=== PATIENT | male | born 1950 | race Caucasian/White ===

== ENCOUNTER 2018-08-29 22:23 | Outpatient (CLI) | payer MEDICARE, MEDICAID | END 2018-08-29 22:24 | disposition critical access hospital (66) | LOC: EMS 22:23 | PROVIDERS: ATTEND Surgery | DX: R44.3 Hallucinations, unspecified (principal); R46.89 Other symptoms and signs involving appearance and behavior; R56.9 Unspecified convulsions | CPT/HCPCS: A0425; A0427 ==

== ENCOUNTER 2018-08-29 22:52 | Emergency (ER) | payer MEDICARE, MEDICAID ==
[2018-08-29] MEDS ORDERED: ETOMIDATE 40 MG/20 ML VIAL IVP STA (23:05)
[2018-08-29] MEDS ORDERED: ROCURONIUM 50 MG/5 ML VIAL IVP ONE (23:13)
[2018-08-29] MEDS ORDERED: SODIUM CHLORIDE 0.9% 1,000 ML IV ONE ×2 (23:14→23:59)
[2018-08-29 23:15] LABS: BASOPHILS # (AUTO) 0.1 10^3/uL (0.0-0.1); BASOPHILS % (AUTO) 0.4 %; EOSINOPHILS % (AUTO) 0.1 %; HGB - HEMOGLOBIN 12.2 g/dL (14.0-18.0); LYMPHOCYTES # (AUTO) 1.2 10^3/uL (1.5-3.5); LYMPHOCYTES % (AUTO) 8.7 %; MEAN CORPUSCULAR HEMOGLOBIN 33.6 pg (27.0-31.0); MEAN CORPUSCULAR VOLUME 101.9 fL (80.0-94.0); MEAN PLATELET VOLUME 9.5 fL (7.4-11.4); MONOCYTES # (AUTO) 0.8 10^3/uL (0.0-1.0); MONOCYTES % (AUTO) 5.8 %; NEUTROPHILS # (AUTO) 11.8 10^3/uL (1.5-6.6); NEUTROPHILS % (AUTO) 84.1 %; PLT - PLATELET COUNT 319 10^3/uL (130-450); RED BLOOD COUNT 3.63 10^6/uL (4.70-6.10); RED CELL DISTRIBUTION WIDTH 11.9 % (12.0-15.0)
[2018-08-29] MEDS ORDERED: ETOMIDATE 40 MG/20 ML VIAL IVP ONE (23:15)
[2018-08-29] MEDS ORDERED: LORazepam 2 MG/ML VIAL IVP STA (23:16)
[2018-08-29] MEDS ORDERED: PROPOFOL 1000 MG/100 ML 100 ML IV STA (23:16)
[2018-08-29 23:23] LABS: GLUCOSE, URINE (UA) NEGATIVE (NEGATIVE); KETONES,URINE (UA) NEGATIVE (NEGATIVE); LEUKOCYTE ESTERASE, URINE NEGATIVE (NEGATIVE); NITRITE,URINE NEGATIVE (NEGATIVE); OCCULT BLOOD,URINE LARGE (NEGATIVE); PH,URINE 5.5 PH (5.0-7.5); PROTEIN,URINE 30 mg/dL (NEGATIVE); UROBILINOGEN,URINE 0.2 (NORMAL) E.U./dL (NORMAL)
--- NOTE | 2018-08-29 23:29 | XRAY Report ---
Reason: chest pain Procedure Date: 08/29/2018 Accession Number: [id number] / [id number] Procedure: XR - Chest 1 View X-Ray CPT Code: 92053 FULL RESULT: EXAM: CHEST RADIOGRAPHY EXAM DATE: 08/29/2018 11:19 PM. CLINICAL HISTORY: Chest pain. COMPARISON: None. TECHNIQUE: 1 view. FINDINGS: Lungs/Pleura: No focal opacities evident. No pleural effusion. No pneumothorax. Mediastinum: Within exam limitations, the cardiomediastinal contour is normal. Other: Endotracheal tube tip is in the upper thoracic aorta just below the thoracic inlet. IMPRESSION: Normal single view chest. RADIA
[2018-08-29 23:30] LABS: BILIRUBIN,URINE NEGATIVE (NEGATIVE); CLARITY,URINE CLEAR (CLEAR); ICTOTEST,URINE NEGATIVE
[2018-08-29] MEDS ORDERED: ROCURONIUM 50 MG/5 ML VIAL IVP STA (23:30)
[2018-08-29 23:31] LABS: BACTERIA,URINE Rare /HPF (None Seen); SQUAMOUS EPITHELIAL CELL,UR FEW Squamous (<= Few)
[2018-08-29 23:49] LABS: ALBUMIN 3.9 g/dL (3.2-5.5); ALBUMIN/GLOBULIN RATIO 0.9 (1.0-2.2); CALCIUM 8.1 mg/dL (8.5-10.3); CREATININE 2.4 mg/dL (0.6-1.2); TOTAL PROTEIN 8.2 g/dL (6.7-8.2)
[2018-08-30 00:09] LABS: ACETAMINOPHEN < 10 ug/mL (10-30); SALICYLATE < 6.0 mg/dL
[2018-08-30 00:19] LABS: AMPHETAMINE SCREEN,URINE NEGATIVE (NEGATIVE); BENZODIAZEPINES SCREEN, URINE NEGATIVE (NEGATIVE); COCAINE SCREEN URINE NEGATIVE (NEGATIVE); METHADONE SCREEN, URINE NEGATIVE (NEGATIVE); METHAMPHETAMINES SCREEN, URINE NEGATIVE (NEGATIVE); MUDS CUTOFF CONCENTRATIONS CUTOFF CONC BELOW:; OPIATE SCREEN, URINE NEGATIVE (NEGATIVE); OXYCODONE SCREEN, URINE NEGATIVE (NEGATIVE); PROPOXYPHENE SCREEN, URINE NEGATIVE (NEGATIVE); TRICYCLIC ANTIDEPRESSANT,URINE NEGATIVE (NEGATIVE)
--- NOTE | 2018-08-30 00:23 | CT Report ---
Reason: altered LOC Procedure Date: 08/29/2018 Accession Number: [id number] / [id number] Procedure: CT - HEAD WO CPT Code: FULL RESULT: EXAM: CT HEAD EXAM DATE: 08/29/2018 11:42 PM. CLINICAL HISTORY: Altered LOC. COMPARISON: None. TECHNIQUE: Multiaxial CT images were obtained from the foramen magnum to the vertex. Reformats: Sagittal and coronal. IV contrast: None. In accordance with CT protocol optimization, one or more of the following dose reduction techniques were utilized for this exam: automated exposure control, adjustment of mA and/or KV based on patient size, or use of iterative reconstructive technique. FINDINGS: Parenchyma: No intraparenchymal hemorrhage. No evidence of mass, midline shift, or CT findings of acute infarction. Martinez-white differentiation is distinct. Diffuse chronic microangiopathic white matter changes are evident. Extraaxial Spaces: Normal for age. No subdural or epidural collections identified. Ventricles: The ventricles and cortical sulci are enlarged, consistent with age-related tissue loss. Sinuses and orbits: Imaged paranasal sinuses, orbits, and mastoids show no significant abnormality. Bones: No evidence of fracture or calvarial defect. Other: None. IMPRESSION: Generalized age-related cortical atrophic changes without evidence of acute intracranial abnormality. RADIA
[2018-08-30 00:45] LABS: ABG BASE EXCESS -1.4 mmol/L (-2.0-3.0); ABG OXYGEN SATURATION 99 % (94-98); ABG PCO2 33 mmHg (34-45); ABG PH 7.44 (7.35-7.45); ABG TCO2 23.1 MMOL/L (21.0-29.0); ALLEN TEST POSITIVE
[2018-08-30 00:46] LABS: ABG PO2 264 mmHg (80-100)
--- NOTE | 2018-08-30 00:50 | XRAY Report ---
Reason: chest pain Procedure Date: 08/29/2018 Accession Number: [id number] / [id number] Procedure: XR - Chest 1 View X-Ray CPT Code: 41053 FULL RESULT: EXAM: CHEST RADIOGRAPHY EXAM DATE: 08/29/2018 11:56 PM. CLINICAL HISTORY: Chest pain. COMPARISON: CHEST 1 VIEW 08/29/2018 11:06 PM. TECHNIQUE: 1 view. FINDINGS: Lungs/Pleura: There is a new small focal infiltrate or a zone of atelectasis at the left lung base. The lungs are otherwise clear. There are no pleural effusions. There may be a right apical pneumothorax. It is difficult to define whether there is a skin fold versus a pneumothorax. Clinical correlation will be helpful with respect to a potential skin fold. Mediastinum: Within exam limitations, the cardiomediastinal contour is normal. Other: None. IMPRESSION: 1. New zone of atelectasis at the left lung base. 2. Right apical pneumothorax versus subtle skin fold. Clinical correlation will be helpful. MARLO The call report notification system was initiated by Dr. Amol Jones at 12:44 AM on 08/30/2018. The above call report findings were discussed with Kenneth Bhatti by Dr. Aoml Jones at 12:49 AM on 08/30/2018.
--- NOTE | 2018-08-30 01:26 | CT Report ---
Reason: ? R apical pneumo Procedure Date: 08/30/2018 Accession Number: [id number] / [id number] Procedure: CT - CHEST WO CPT Code: FULL RESULT: EXAM: CT CHEST EXAM DATE: 08/30/2018 01:15 AM. CLINICAL HISTORY: ? R apical pneumo. COMPARISONS: None. TECHNIQUE: Routine helical CT imaging was performed through the chest. IV contrast: None. Reconstructions: Coronal and sagittal. In accordance with CT protocol optimization, one or more of the following dose reduction techniques were utilized for this exam: automated exposure control, adjustment of mA and/or KV based on patient size, or use of iterative reconstructive technique. FINDINGS: Lungs/Pleura: There is an area of atelectasis versus aspiration at the left lung base. The patient is intubated. The tip is in the mid trachea. There are no pleural effusions and no pneumothoraces. Mediastinum: The heart is not enlarged. There are extensive atherosclerotic vascular calcifications of the coronary arteries. Bones: Unremarkable. Visualized Abdomen: Limited views of the upper abdomen are unremarkable. Other: None. IMPRESSION: 1. Infiltrate/aspiration left lower lobe. 2. Status post intubation. 3. No evidence for pneumothorax. RADIA
--- NOTE | 2018-08-30 01:40 | ED Physician Documentation ---
PD HPI ALTERED MENTAL STATUS - Stated complaint Stated Complaint: HALLUCINATIONS - Chief complaint Chief Complaint: Neuro - History obtained from History obtained from: Family ( Bertha by phone), EMS - History of Present Illness Timing - onset: How many days ago (3) Timing - duration: Days (3) Timing - details: Gradual onset, Still present Quality / character: Confused, Agitated, Combative, Hallucinating Associated symptoms: General weakness. No: Fever, Headache, Stiff neck, Dyspnea, Cough, NVD, Urinary sx, Focal weakness, Seizure activity, Syncope Contributing factors: Recent illness, Other (stopped drinking 3 days ago). No: Anticoagulated Basline status: Alert and oriented X 3, Ambulatory, Independent Similar symptoms before: Has not had sx before Recently seen: Not recently seen - Additional information Additional information: 68-year-old male unknown to this emergency department and with no family here for history presents via EMS with a several day history of increasing shakes and tonight development of ward hallucination and combativeness. History from the patient's (Bertha [phone]) indicates that he usually drinks whiskey about 1 pint per day and he has stopped drinking about 3 days ago. She states that he has been cranky with her and short tempered and has developed some shaking. This evening he became in comprehensible and she called the ambulance. Medics indicate that the patient was combative and they administered 4 mg of Versed in route to the hospital. He was found to be hypoxic tachycardic and tachypneic.He arrives to the emergency department with a Jc Coma Scale of 6. Review of Systems Unable to obtain: Intubated Constitutional: denies: Fever PD PAST MEDICAL HISTORY - Past Medical History Past Medical History: Yes Cardiovascular: Hypertension Respiratory: None Endocrine/Autoimmune: None GI: GERD : None HEENT: None Psych: None Musculoskeletal: None Derm: None - Past Surgical History General: Appendectomy - Present Medications Home Medications: Ambulatory Orders Medication Instructions Recorded Confirmed Hydrochlorothiazide 12.5 mg PO DAILY 12/13/15 12/13/15 Losartan Potassium 50 mg PO DAILY 12/13/15 12/13/15 Omeprazole [PriLOSEC] 20 mg PO DAILY 12/13/15 12/13/15 diltiaZEM CD [Cardizem Cd] 240 mg PO DAILY 12/13/15 12/13/15 Cyclobenzaprine [Flexeril] 10 mg PO TID 08/30/18 08/30/18 - Allergies Allergies/Adverse Reactions: Allergies Allergy/AdvReac Type Severity Reaction Status Date / Time No Known Drug Allergies Allergy Verified 12/13/15 15:00 - Social History Does the pt smoke?: No Smoking Status: Never smoker PD ED PE NORMAL - Vitals Vital signs reviewed: Yes (tachy, tachypneic, hypertensive and hypoxic) - General General: Well developed/nourished, Other (clean appearing with clean hands and trimmed nails) - HEENT HEENT: Atraumatic, PERRL - Neck Neck: Supple, no meningeal sign, No JVD, No bruit - Cardiac Cardiac: No murmur, Other (tachy to 120) - Respiratory Respiratory: Other (with bagging there is bilat rhonchi) - Abdomen Abdomen: Soft, Non tender - Back Back: No CVA TTP - Derm Derm: Normal color, Warm and dry, No rash - Extremities Extremities: No deformity, No edema - Neuro Neuro: Other (GCS 6 does move all ext to fight periodically) Eye Opening: None Motor: Withdraws to Pain Verbal: None GCS Score: 6 Results - Vitals Vitals: Vital Signs - 24 hr 08/29/18 08/29/18 08/29/18 22:53 23:01 23:12 Temperature 37.1 C Heart Rate 122 H 131 H 130 H Respiratory 36 H 9 L Rate Blood Pressure 138/77 H 138/77 H 140/93 H O2 Saturation 77 L 85 L 96 08/29/18 08/29/18 08/30/18 23:25 23:45 00:00 Temperature Heart Rate 117 H 94 89 Respiratory 11 L 18 Rate Blood Pressure 140/93 H 124/92 H O2 Saturation 100 100 08/30/18 08/30/18 08/30/18 00:04 00:30 01:18 Temperature Heart Rate 92 91 93 Respiratory 16 18 21 Rate Blood Pressure 120/83 H 140/116 H 139/91 H O2 Saturation 100 100 100 08/30/18 08/30/18 08/30/18 01:28 01:33 02:00 Temperature 36.7 C Heart Rate 80 81 77 Respiratory 16 16 14 Rate Blood Pressure 131/92 H 135/90 H 122/86 H O2 Saturation 96 100 98 06/08/30/18 08/30/18 02:30 02:55 03:00 Temperature Heart Rate 74 75 73 Respiratory 16 16 Rate Blood Pressure 141/88 H 132/83 H O2 Saturation 100 100 08/30/18 08/30/18 08/30/18 03:02 03:33 04:06 Temperature 37 C Heart Rate 74 76 76 Respiratory 16 16 21 Rate Blood Pressure 132/83 H 121/82 H 120/81 H O2 Saturation 100 100 100 Oxygen O2 Source Mechanical ventilator - EKG (time done) 2352 Rate: Rate (enter#) (96) Rhythm: NSR Intervals: Prolonged QT QRS: Low voltage Ischemia: ST depression (inferior leads) Compare to prior EKG: Old EKG unavailable Computer interpretation: Agree with computer - Labs Labs: Laboratory Tests 08/29/18 08/29/18 08/29/18 23:10 23:10 23:10 WBC 14.0 H RBC 3.63 L Hgb 12.2 L Hct 37.0 L MCV 101.9 H MCH 33.6 H MCHC 33.0 RDW 11.9 L Plt Count 319 MPV 9.5 Neut # (Auto) 11.8 H Lymph # (Auto) 1.2 L [place] # (Auto) 0.8 Eos # (Auto) 0.0 Baso # (Auto) 0.1 Absolute Nucleated RBC 0.00 Nucleated RBC % 0.0 Bld Gas Analysis Time Sample Site ABG pH ABG pCO2 ABG pO2 ABG HCO3 ABG Total CO2 ABG O2 Saturation ABG Base Excess Woody Test Respiration Rate O2 Delivery Device Vent Mode FiO2 Tidal Volume PEEP Pressure Support Vent Sodium 138 Potassium 2.5 L* Chloride 96 L Carbon Dioxide 10 L* Anion Gap 32.0 H BUN 38 H Creatinine 2.4 H Estimated GFR (MDRD) 27 L Glucose 210 H Lactic Acid Calcium 8.1 L Total Bilirubin 1.0 AST 52 H ALT 30 Alkaline Phosphatase 40 L Troponin I < 0.04 B-Natriuretic Peptide Total Protein 8.2 Albumin 3.9 Globulin 4.3 H Albumin/Globulin Ratio 0.9 L Lipase 346 H TSH Urine Color Urine Clarity Urine pH Ur Specific [place] Urine Protein Urine Glucose (UA) Urine Ketones Urine Occult Blood Urine Nitrite Urine Bilirubin Urine Urobilinogen Ur Leukocyte Esterase Urine RBC Urine WBC Ur Squamous Epith Cells Urine Bacteria Urine Casts Ur Microscopic Review Urine Culture Comments Salicylates Urine Opiates Screen Ur Oxycodone Screen Urine Methadone Screen Ur Propoxyphene Screen Acetaminophen Ur Barbiturates Screen Ur Tricyclics Screen Ur Phencyclidine Scrn Ur Amphetamine Screen U Methamphetamines Scrn U Benzodiazepines Scrn Urine Cocaine Screen U Cannabinoids Screen Ethyl Alcohol 08/29/18 08/29/18 08/29/18 23:10 23:10 23:10 WBC RBC Hgb Hct MCV MCH MCHC RDW Plt Count MPV Neut # (Auto) Lymph # (Auto) [place] # (Auto) Eos # (Auto) Baso # (Auto) Absolute Nucleated RBC Nucleated RBC % Bld Gas Analysis Time Sample Site ABG pH ABG pCO2 ABG pO2 ABG HCO3 ABG Total CO2 ABG O2 Saturation ABG Base Excess Woody Test Respiration Rate O2 Delivery Device Vent Mode FiO2 Tidal Volume PEEP Pressure Support Vent Sodium Potassium Chloride Carbon Dioxide Anion Gap BUN Creatinine Estimated GFR (MDRD) Glucose Lactic Acid Calcium Total Bilirubin AST ALT Alkaline Phosphatase Troponin I B-Natriuretic Peptide 100 Total Protein Albumin Globulin Albumin/Globulin Ratio Lipase TSH 1.04 Urine Color Urine Clarity Urine pH Ur Specific [place] Urine Protein Urine Glucose (UA) Urine Ketones Urine Occult Blood Urine Nitrite Urine Bilirubin Urine Urobilinogen Ur Leukocyte Esterase Urine RBC Urine WBC Ur Squamous Epith Cells Urine Bacteria Urine Casts Ur Microscopic Review Urine Culture Comments Salicylates < 6.0 Urine Opiates Screen Ur Oxycodone Screen Urine Methadone Screen Ur Propoxyphene Screen Acetaminophen < 10 L Ur Barbiturates Screen Ur Tricyclics Screen Ur Phencyclidine Scrn Ur Amphetamine Screen U Methamphetamines Scrn U Benzodiazepines Scrn Urine Cocaine Screen U Cannabinoids Screen Ethyl Alcohol < 5.0 08/29/18 08/29/18 08/29/18 23:18 23:21 23:26 WBC RBC Hgb Hct MCV MCH MCHC RDW Plt Count MPV Neut # (Auto) Lymph # (Auto) [place] # (Auto) Eos # (Auto) Baso # (Auto) Absolute Nucleated RBC Nucleated RBC % Bld Gas Analysis Time Sample Site ABG pH ABG pCO2 ABG pO2 ABG HCO3 ABG Total CO2 ABG O2 Saturation ABG Base Excess Woody Test Respiration Rate O2 Delivery Device Vent Mode FiO2 Tidal Volume PEEP Pressure Support Vent Sodium Potassium Chloride Carbon Dioxide Anion Gap BUN Creatinine Estimated GFR (MDRD) Glucose Lactic Acid > 10.0 H* Calcium Total Bilirubin AST ALT Alkaline Phosphatase Troponin I B-Natriuretic Peptide Total Protein Albumin Globulin Albumin/Globulin Ratio Lipase TSH Urine Color YELLOW Urine Clarity CLEAR Urine pH 5.5 Ur Specific [place] 1.025 Urine Protein 30 H Urine Glucose (UA) NEGATIVE Urine Ketones NEGATIVE Urine Occult Blood LARGE H Urine Nitrite NEGATIVE Urine Bilirubin NEGATIVE Urine Urobilinogen 0.2 (NORMAL) Ur Leukocyte Esterase NEGATIVE Urine RBC 11-25 H Urine WBC 0-3 Ur Squamous Epith Cells FEW Squamous Urine Bacteria Rare Urine Casts 0-2 Fine Granular Ur Microscopic Review INDICATED Urine Culture Comments NOT INDICATED Salicylates Urine Opiates Screen NEGATIVE Ur Oxycodone Screen NEGATIVE Urine Methadone Screen NEGATIVE Ur Propoxyphene Screen NEGATIVE Acetaminophen Ur Barbiturates Screen NEGATIVE Ur Tricyclics Screen NEGATIVE Ur Phencyclidine Scrn NEGATIVE Ur Amphetamine Screen NEGATIVE U Methamphetamines Scrn NEGATIVE U Benzodiazepines Scrn NEGATIVE Urine Cocaine Screen NEGATIVE U Cannabinoids Screen POSITIVE H Ethyl Alcohol 08/30/18 00:38 WBC RBC Hgb Hct MCV MCH MCHC RDW Plt Count MPV Neut # (Auto) Lymph # (Auto) [place] # (Auto) Eos # (Auto) Baso # (Auto) Absolute Nucleated RBC Nucleated RBC % Bld Gas Analysis Time 0046 Sample Site RIGHT RADIAL ABG pH 7.44 ABG pCO2 33 L ABG pO2 264 H* ABG HCO3 22.0 ABG Total CO2 23.1 ABG O2 Saturation 99 H ABG Base Excess -1.4 Woody Test POSITIVE Respiration Rate 18 O2 Delivery Device VENTILATOR Vent Mode SIMV FiO2 100.00 Tidal Volume 550 PEEP 5 Pressure Support Vent 10 Sodium Potassium Chloride Carbon Dioxide Anion Gap BUN Creatinine Estimated GFR (MDRD) Glucose Lactic Acid Calcium Total Bilirubin AST ALT Alkaline Phosphatase Troponin I B-Natriuretic Peptide Total Protein Albumin Globulin Albumin/Globulin Ratio Lipase TSH Urine Color Urine Clarity Urine pH Ur Specific [place] Urine Protein Urine Glucose (UA) Urine Ketones Urine Occult Blood Urine Nitrite Urine Bilirubin Urine Urobilinogen Ur Leukocyte Esterase Urine RBC Urine WBC Ur Squamous Epith Cells Urine Bacteria Urine Casts Ur Microscopic Review Urine Culture Comments Salicylates Urine Opiates Screen Ur Oxycodone Screen Urine Methadone Screen Ur Propoxyphene Screen Acetaminophen Ur Barbiturates Screen Ur Tricyclics Screen Ur Phencyclidine Scrn Ur Amphetamine Screen U Methamphetamines Scrn U Benzodiazepines Scrn Urine Cocaine Screen U Cannabinoids Screen Ethyl Alcohol - Rads (name of study) Chest Radiology: Prelim report reviewed (IMPRESSION: Normal single view chest. ), EMP read indepedently, See rad report CT head without Radiology: Prelim report reviewed (IMPRESSION: Generalized age-related cortical atrophic changes without evidence of acute intracranial abnormality) chest 1 view Radiology: Prelim report reviewed (Impression: 1. New zone of atelectasis the left lung base. 2 Right apical pneumothorax versus subtle skinfold. Clinical correlation will be helpful.), EMP read indepedently, See rad report CT chest without Radiology: Prelim report reviewed (Impression: 1. Infiltrate/aspiration left lower lobe. 2 Status post intubation. No evidence for pneumothorax.), EMP read indepedently, See rad report Procedures - IVC sono (time) 2300 Bedside IVC sono: IVC measures (cm) (1.2), Dehydration (est 1 liter deficit) PD MEDICAL DECISION MAKING - ED course Complexity details: reviewed old records, reviewed results, re-evaluated patient, considered differential, d/w family ED course: 68-year-old male not known to our emergency department arrives hypoxic and in respiratory failure with a [place] Coma Scale scale of 6. Shortly after arrival he is intubated and following intubation his vital signs come back to normal. With the intubation he is administered etomidate and rocuronium and following that he is administered Ativan 2 mg intravenously and placed onto a propofol drip for sedation. He requires some adjustments to the ventilator and the propofol drip but remains hemodynamically stable. I was able to get some history from the patient's who was a poor historian but able to indicate that the patient appeared to be going through alcohol withdrawal and this evening had a rather abrupt marked increase in confusion and hallucinations and combativeness. Urine and chest appeared clear the patient appeared to respond to treatments but remained intubated. Our intensive care unit here was full as were the intensive care units at [facility] and [facility] in [place]. Her good friends at [facility] were able to accommodate this patient and he is transported via [facility] to [facility]. He has received 2 L of normal saline and 1 L as a banana bag. He was administered potassium IV as well as rocephin at the time of transfer. Departure - Departure Disposition: 02 Transfer Acute Care Hosp Clinical Impression: Alcohol withdrawal syndrome with complication, Hypokalemia Altered mental status Qualifiers: Altered mental status type: coma Coma depth: [place] coma 3-8 Coma timing: in the field (EMT or ambulance) Qualified Code(s): R40.2431 - [place] coma scale score 3-8, in the field [EMT or ambulance] Pneumonia Qualifiers: Pneumonia type: due to unspecified organism Laterality: left Lung location: lower lobe of lung Qualified Code(s): J18.1 - Lobar pneumonia, unspecified organism Condition: Serious
[2018-08-30] MEDS ORDERED: FOLIC ACID INJ 1 MG, THIAMINE INJ 100 MG, MAGNESIUM SULFATE 2 GM, MULTIVITAMIN 10 ML in... IV STA ×5 (01:49)
[2018-08-30] MEDS ORDERED: THIAMINE 100 MG/1 ML 2 ML MDV ONE (02:08)
[2018-08-30] MEDS ORDERED: LORazepam 2 MG/ML VIAL IVP STA (03:26)
[2018-08-30] MEDS ORDERED: POTASSIUM CHLOR 10 MEQ/100 ML 10 MEQ/100 ML BAG IV ONE (03:52)
[2018-08-30] MEDS ORDERED: cefTRIAXone 1 GM in SODIUM CHLORIDE 0.9% MINIBAG 100 ML IV STA (03:58)
[2018-08-30 04:07] VITALS: BP 120/81
== END 2018-08-30 04:30 | disposition short-term general hospital (02) ==
LOC: EDUNIT# → ED 22:52
DX: J96.91 Respiratory failure, unspecified with hypoxia (principal); J18.1 Lobar pneumonia, unspecified organism; R40.20 Unspecified coma; R40.2431 Glasgow coma scale score 3-8, in the field [EMT or ambulance]; F10.239 Alcohol dependence with withdrawal, unspecified; E87.6 Hypokalemia; E86.0 Dehydration; I45.81 Long QT syndrome; I10 Essential (primary) hypertension
CPT/HCPCS: 31500; 36415; 36600; 51702; 70450; 71250; 81001; 82803; 83605; 83690; 83880; 84484; 87040; 93005; 94770; 96361; 96365; 96368; 99285; J2060; J3411; 71045; 80053; 80306; 80307; 80320; 80329; 81003; 84443; 85025; 87086

== ENCOUNTER 2018-09-09 13:30 | Outpatient (CLI) | payer MEDICARE, OTHER ==
[2018-09-09 17:51] LABS: BASOPHILS # (AUTO) 0.1 10^3/uL (0.0-0.1); EOSINOPHILS # (AUTO) 0.1 10^3/uL (0.0-0.7); EOSINOPHILS % (AUTO) 0.6 %; HGB - HEMOGLOBIN 12.1 g/dL (14.0-18.0); LYMPHOCYTES # (AUTO) 1.3 10^3/uL (1.5-3.5); LYMPHOCYTES % (AUTO) 15.9 %; MEAN CORPUSCULAR HEMOGLOBIN 34.3 pg (27.0-31.0); MEAN CORPUSCULAR VOLUME 100.8 fL (80.0-94.0); MONOCYTES # (AUTO) 0.8 10^3/uL (0.0-1.0); MONOCYTES % (AUTO) 10.2 %; NEUTROPHILS # (AUTO) 5.8 10^3/uL (1.5-6.6); NEUTROPHILS % (AUTO) 71.8 %; PLT - PLATELET COUNT 516 10^3/uL (130-450); RED BLOOD COUNT 3.53 10^6/uL (4.70-6.10); RED CELL DISTRIBUTION WIDTH 11.8 % (12.0-15.0); WHITE BLOOD COUNT 8.1 x10^3/uL (4.8-10.8)
[2018-09-09 18:40] LABS: BILIRUBIN,TOTAL 0.6 mg/dL (0.2-1.0); CALCIUM 10.5 mg/dL (8.5-10.3); CREATININE 1.3 mg/dL (0.6-1.2); TOTAL PROTEIN 8.1 g/dL (6.7-8.2)
[2018-09-09 18:41] LABS: MAGNESIUM 0.7 mg/dL (1.7-2.8)
== END 2018-09-09 13:31 | disposition home or self-care (01) ==
LOC: LAB.S 13:30
PROVIDERS: ATTEND Nurse Practitioner Family
DX: E83.42 Hypomagnesemia (principal); D64.9 Anemia, unspecified
CPT/HCPCS: 36415; 80053; 83735; 85025

== ENCOUNTER 2019-02-25 07:58 | Day surgery (SDC) | payer MEDICARE, OTHER ==
[~2019-02-25 07:58] MED LIST: CYCLOPENTOLATE 1% OPHTH DROPS 2 ML ONE; KETOROLAC 0.45% OPHTH DROPS ONE; PHENYLEPHRINE 2.5% OPHTH 2 ML DROPS ONE; PROPARACAINE 0.5% OPHTH DROPS 15 ML ONE
[2019-02-25] MEDS ORDERED: LACTATED RINGERS 500 ML IV ONE ×2 (08:06→09:15)
[2019-02-25] MEDS ORDERED: CYCLOPENTOLATE 1% OPHTH DROPS 2 ML LEFTEYE ONE (08:19)
[2019-02-25] MEDS ORDERED: PROPARACAINE 0.5% OPHTH DROPS 15 ML LEFTEYE ONE (08:19)
[2019-02-25] MEDS ORDERED: KETOROLAC 0.45% OPHTH DROPS LEFTEYE ONE (08:19)
[2019-02-25] MEDS ORDERED: PHENYLEPHRINE 2.5% OPHTH 2 ML DROPS LEFTEYE ONE (08:19)
--- NOTE | 2019-02-25 08:47 | ANESTHESIA ---
Pre-Anesthesia VS, & Labs - Diagnosis senile combined cataract left - Procedure left cataract extraction with intraocular lens Vital Signs: Temp Pulse Resp BP Pulse Ox 36.6 C 76 18 145/91 H 99 02/25/19 08:06 02/25/19 08:06 02/25/19 08:06 02/25/19 08:06 02/25/19 08:06 Height 5 ft 9 in Weight (kg) 67 kg Body Mass Index 22.8 - NPO >8 hours Home Medications and Allergies Hydrochlorothiazide 12.5 mg PO DAILY 12/13/15 Losartan Potassium 50 mg PO DAILY 12/13/15 Omeprazole [PriLOSEC] 20 mg PO DAILY 12/13/15 diltiaZEM CD [Cardizem Cd] 240 mg PO DAILY 12/13/15 Allergies/Adverse Reactions: Allergies Allergy/AdvReac Type Severity Reaction Status Date / Time No Known Drug Allergies Allergy Verified 12/13/15 15:00 Anes History & Medical History - Anesthetic History Anesthesia Complications: reports: No previous complications - Medical History Cardiovascular: reports: Hypertension Pulmonary: reports: None Gastrointestinal: reports: GERD Urinary: reports: None Musculoskeletal: reports: None Endocrine/Autoimmune: reports: None Skin: reports: None Smoking Status: Never smoker - Surgical History General: Appendectomy Exam General: Alert Dental: WNL Mallampati classification: II Respiratory: Lungs clear Cardiovascular: Regular rate, Normal S1, Normal S2 Plan Anesthesia Type: MAC Consent for Procedure(s) Verified and Reviewed: Yes Code Status: Attempt Resuscitation ASA classification: 2-Mild systemic disease Is this case an emergency?: No
[2019-02-25] MEDS ORDERED: MIDAZOLAM 2 MG/2 ML VIAL IVP ONE (08:50)
[2019-02-25] MEDS ORDERED: BRIMONIDINE 0.2% OPHTH DROPS 5 ML OPTH ONE (09:10)
[2019-02-25] MEDS ORDERED: EPINEPHrine 1 MG/ML AMP IVP ONE (09:10)
[2019-02-25] MEDS ORDERED: TIMOLOL 0.5% OPHTH DROPS OPTH ONE (09:10)
[2019-02-25] MEDS ORDERED: CHONDR SULF/HYALURONATE SYRINGE IO ONE (09:10)
[2019-02-25] MEDS ORDERED: TRIAMCIN/MOXIFLOX OPHTHALMIC 0.6 ML VIAL IO ONE ×2 (09:11→09:58)
[2019-02-25] MEDS ORDERED: VANCOMYCIN OPHTHALMI 8MG/0.8ML 8 MG/0.8 ML SYRINGE IO ONE ×2 (09:11→09:59)
[2019-02-25] MEDS ORDERED: BSS/LIDOCAINE/EPINEPHRINE 1 ML SYRINGE IO ONE (09:11)
[2019-02-25 09:48] VITALS: BP 130/70
[2019-02-25] MEDS ORDERED: TIMOLOL 0.5% OPHTH DROPS ONE (09:57)
[2019-02-25] MEDS ORDERED: EPINEPHrine 1 MG/ML AMP ONE (09:57)
[2019-02-25] MEDS ORDERED: BRIMONIDINE 0.2% OPHTH DROPS 5 ML ONE (09:57)
[2019-02-25] MEDS ORDERED: BSS/LIDOCAINE/EPINEPHRINE 1 ML SYRINGE ONE (09:58)
--- NOTE | 2019-02-25 12:58 | OPERATIVE REPORT ---
DATE OF SERVICE: 02/25/2019 Physician: Anupam Soto MD PREOPERATIVE DIAGNOSIS: Visually significant cataract, left eye. This was his first cataract surgery. POSTOPERATIVE DIAGNOSIS: Visually significant cataract, left eye. This was his first cataract surgery. DESCRIPTION OF PROCEDURE: Phacoemulsification with posterior chamber intraocular lens implant, left eye. SURGEON: Anupam Soto MD ANESTHESIA: Monitored anesthesia care. COMPLICATIONS: None. OPERATIVE INDICATIONS: This is a 68-year-old man with progressive vision loss in the left eye due to 2-3+ nuclear sclerotic and 3+ posterior subcapsular cataract. Best corrected visual acuity was 20/60 with glare to 20/200 in the left eye. Indications for surgery were overall decrease in vision, difficulty seeing words on a computer screen, difficulty reading, difficulty seeing words on closed caption or game scores on TV, difficulty seeing street signs, and difficulty driving at night because headlights from other vehicles. He was consented at length concerning risks and benefits of cataract surgery, after which he expressed a desire to proceed with surgery. OPERATIVE PROCEDURE: The patient was taken to OR #3 and placed under monitored anesthesia care. A surgical timeout was conducted confirming correct patient, correct procedure, and correct surgical site. He was given topical anesthesia and prepped and draped in the usual sterile fashion. The eye was entered at the 6 and 3 o'clock positions. Intracameral Shugarcaine was injected into the anterior chamber, followed by Viscoat. A continuous-tear curvilinear capsulorrhexis was performed. The nucleus was hydrodissected and phacoemulsified. The cortex was evacuated using automated infusion and aspiration. Provisc was injected in the capsular bag and an 11.0 diopter intraocular lens inserted in the bag. Automated infusion and aspiration was used to evacuate the viscoelastic materials. The eye was inflated to physiologic pressure using balanced salt solution and found to be watertight. Approximately 0.25 mL of a mixture of triamcinolone and moxifloxacin was injected transsclerally into the vitreous in the inferotemporal quadrant. An additional 0.55 mL of a mixture of triamcinolone, moxifloxacin and vancomycin was injected subconjunctivally in the superior quadrant for infection and inflammation prophylaxis. Wound integrity was checked with Weck-Sivan sponges. The patient was taken from the operating room in good condition and given postoperative instructions. TD: 02/25/2019 12:10 MTDD
== END 2019-02-25 07:59 | disposition home or self-care (01) ==
LOC: SDS 07:58
PROVIDERS: ATTEND Ophthalmology
PROC: 08RK3JZ Replacement of Left Lens with Synthetic Substitute, Percutaneous Approach (ICD-10-PCS; principal; 2019-02-25 09:00)
DX: H25.812 Combined forms of age-related cataract, left eye (principal); Z87.891 Personal history of nicotine dependence; I10 Essential (primary) hypertension; Z79.899 Other long term (current) drug therapy
CPT/HCPCS: 66984; A9270; J3490; V2632

== ENCOUNTER 2019-03-18 06:59 | Day surgery (SDC) | payer MEDICARE, OTHER ==
[2019-03-18] MEDS ORDERED: MIDAZOLAM 2 MG/2 ML VIAL IVP ONE (07:00)
[2019-03-18] MEDS ORDERED: TRIAMCIN/MOXIFLOX OPHTHALMIC 0.6 ML VIAL IO ONE ×2 (07:08→08:16)
[2019-03-18] MEDS ORDERED: BRIMONIDINE 0.2% OPHTH DROPS 5 ML ONE (07:08)
[2019-03-18] MEDS ORDERED: TIMOLOL 0.5% OPHTH DROPS ONE (07:08)
[2019-03-18] MEDS ORDERED: BSS/LIDOCAINE/EPINEPHRINE 1 ML SYRINGE ONE (07:08)
[2019-03-18] MEDS ORDERED: VANCOMYCIN OPHTHALMI 8MG/0.8ML 8 MG/0.8 ML SYRINGE IO ONE ×2 (07:08→08:16)
[2019-03-18] MEDS ORDERED: LACTATED RINGERS 500 ML IV ONE (07:18)
[2019-03-18] MEDS ORDERED: CYCLOPENTOLATE 1% OPHTH DROPS 2 ML RIGHTEYE ONE (07:21)
--- NOTE | 2019-03-18 07:36 | ANESTHESIA ---
Pre-Anesthesia VS, & Labs - Diagnosis Right nuclear sclerotic cataract - Procedure Right phaco with IOL implant Vital Signs: Temp Pulse Resp BP Pulse Ox 37.1 C 79 16 145/90 H 100 03/18/19 07:18 03/18/19 07:18 03/18/19 07:18 03/18/19 07:18 03/18/19 07:18 Height 5 ft 9 in Weight (kg) 68 kg Body Mass Index 22.8 - NPO Other (Coffee at 0530) Home Medications and Allergies Hydrochlorothiazide 12.5 mg PO DAILY 12/13/15 Losartan Potassium 50 mg PO DAILY 12/13/15 Omeprazole [PriLOSEC] 20 mg PO DAILY 12/13/15 diltiaZEM CD [Cardizem Cd] 240 mg PO DAILY 12/13/15 Allergies/Adverse Reactions: Allergies Allergy/AdvReac Type Severity Reaction Status Date / Time No Known Drug Allergies Allergy Verified 12/13/15 15:00 Anes History & Medical History - Anesthetic History Anesthesia Complications: reports: No previous complications Family history of Anesthesia Complications: Denies Family history of Malignant Hyperthermia: Denies - Medical History Cardiovascular: reports: Hypertension Pulmonary: reports: None Gastrointestinal: reports: GERD Urinary: reports: None Neuro: reports: None Musculoskeletal: reports: None Endocrine/Autoimmune: reports: None Blood Disorders: reports: None Skin: reports: None Smoking Status: Former smoker Psychosocial: reports: No issues indicated - Surgical History General: Appendectomy Eyes Ears Nose Throat (EENT): Cataracts Exam General: Alert, Oriented x3, Cooperative Dental: Poor dentition Mouth Opening: Greater than 4 Fingerbreadths Neck Mobility: Normal Mallampati classification: I Thyromental Distance: greater than 6 cm Neurological: Normal speech Mental/Cognitive Status: Alert/Oriented X3 Cognitive Status: Within normal limits Plan Anesthesia Type: MAC Consent for Procedure(s) Verified and Reviewed: Yes Code Status: Attempt Resuscitation ASA classification: 2-Mild systemic disease Is this case an emergency?: No
[2019-03-18] MEDS ORDERED: EPINEPHrine 1 MG/ML AMP IVP ONE (08:14)
[2019-03-18] MEDS ORDERED: BRIMONIDINE 0.2% OPHTH DROPS 5 ML OPTH ONE (08:14)
[2019-03-18] MEDS ORDERED: TIMOLOL 0.5% OPHTH DROPS OPTH ONE (08:15)
[2019-03-18] MEDS ORDERED: CHONDR SULF/HYALURONATE SYRINGE IO ONE (08:15)
[2019-03-18] MEDS ORDERED: BSS/LIDOCAINE/EPINEPHRINE 1 ML SYRINGE IO ONE (08:15)
[2019-03-18 08:37] VITALS: BP 121/85
--- NOTE | 2019-03-18 09:29 | OPERATIVE REPORT ---
DATE OF SERVICE: 03/18/2019 Physician: Anupam Soto MD PREOPERATIVE DIAGNOSIS: Visually significant cataract, right eye. Cataract surgery was performed on the left eye in 02/25/2019. POSTOPERATIVE DIAGNOSIS: Visually significant cataract, right eye. Cataract surgery was performed o n the left eye in 02/25/2019. PROCEDURE: Phacoemulsification with posterior chamber intraocular lens implant, right eye. SURGEON: Anupam Soto MD ANESTHESIA: Monitored anesthesia care. COMPLICATIONS: None. OPERATIVE INDICATIONS: This is a 68-year-old man with progressive vision loss in the right eye due t o 2-3+ nuclear sclerotic cataract. Best corrected visual acuity was 20/40, with glare to hand motion in the right eye. Indications for surgery are overall decrease in vision, difficulty seeing street signs. He was consented at length concerning risks and benefits of cataract surgery, after which he expressed a desire to proceed with surgery. OPERATIVE PROCEDURE: Patient was taken to OR #3 and placed under monitored anesthesia care. A surgi kaitlin timeout was conducted confirming correct patient, correct procedure, and correct surgical site. He was given topical anesthesia, and prepped and draped in the usual sterile fashion. The eye was en tered at the 12 and 9 o'clock positions. Intracameral Shugarcaine was injected into the anterior linnea mber, followed by Viscoat. A continuous-tear curvilinear capsulorrhexis was performed. The nucleus was hydrodissected and phacoemulsified. The cortex was evacuated using automated infusion and aspira tion. Provisc was injected in the capsular bag, and a 11.0 diopter intraocular lens inserted in the bag. I and A was used to evacuate the viscoelastic materials. The eye was inflated to physiologic p ressure using balanced salt solution and found to be watertight. Approximately 0.25 mL of a mixture of triamcinolone, moxifloxacin was injected transsclerally into the vitreous in the inferotemporal qu adrant. An additional 0.55 mL of a mixture of triamcinolone, moxifloxacin and vancomycin was injecte d subconjunctivally in the superior quadrant for infection and inflammation prophylaxis. Wound integ rity was checked with Weck-Sivan sponges. Patient was taken from the operating room in good condition and given postoperative instructions. TD: 03/18/2019 08:35
== END 2019-03-18 07:00 | disposition home or self-care (01) ==
LOC: SDS 06:59
PROVIDERS: ATTEND Ophthalmology
PROC: 08RJ3JZ Replacement of Right Lens with Synthetic Substitute, Percutaneous Approach (ICD-10-PCS; principal; 2019-03-18 08:00)
DX: H25.11 Age-related nuclear cataract, right eye (principal); I10 Essential (primary) hypertension; K21.9 Gastro-esophageal reflux disease without esophagitis; Z87.891 Personal history of nicotine dependence; Z98.42 Cataract extraction status, left eye; Z96.1 Presence of intraocular lens
CPT/HCPCS: 66984; A9270; J3490; V2632

== ENCOUNTER 2021-12-02 01:52 | Outpatient (CLI) | payer MEDICARE, OTHER | END 2021-12-02 01:53 | disposition critical access hospital (66) | LOC: EMS 01:52 | DX: R10.31 Right lower quadrant pain (principal); R10.32 Left lower quadrant pain; K46.9 Unspecified abdominal hernia without obstruction or gangrene | CPT/HCPCS: A0425; A0427 ==

== ENCOUNTER 2021-12-02 02:22 | Day surgery (SDC) | payer MEDICARE, OTHER ==
[2021-12-02 02:56] LABS: BASOPHILS % (AUTO) 0.4 %; EOSINOPHILS # (AUTO) 0.1 10^3/uL (0.0-0.7); EOSINOPHILS % (AUTO) 0.8 %; HCT - HEMATOCRIT 36.4 % (42.0-52.0); HGB - HEMOGLOBIN 12.9 g/dL (14.0-18.0); LYMPHOCYTES # (AUTO) 1.8 10^3/uL (1.5-3.5); LYMPHOCYTES % (AUTO) 22.2 %; MEAN CORPUSCULAR HEMOGLOBIN 32.5 pg (27.0-31.0); MEAN CORPUSCULAR HGB CONC 35.4 g/dL (32.0-36.0); MEAN CORPUSCULAR VOLUME 91.7 fL (80.0-94.0); MEAN PLATELET VOLUME 10.1 fL (7.4-11.4); MONOCYTES # (AUTO) 0.7 10^3/uL (0.0-1.0); MONOCYTES % (AUTO) 8.4 %; NEUTROPHILS # (AUTO) 5.6 10^3/uL (1.5-6.6); PLT - PLATELET COUNT 277 10^3/uL (130-450); RED BLOOD COUNT 3.97 10^6/uL (4.70-6.10); RED CELL DISTRIBUTION WIDTH 12.3 % (12.0-15.0); WHITE BLOOD COUNT 8.3 x10^3/uL (4.8-10.8)
[2021-12-02 03:09] LABS: ALBUMIN 3.7 g/dL (3.2-5.5); BILIRUBIN,TOTAL 0.6 mg/dL (0.2-1.0); CALCIUM 8.6 mg/dL (8.5-10.3); POTASSIUM 3.2 mmol/L (3.5-5.0); TOTAL PROTEIN 7.3 g/dL (6.7-8.2)
--- NOTE | 2021-12-02 05:29 | ED Physician Documentation ---
PD HPI ABD PAIN - Stated complaint Stated Complaint: ABD PX - Chief complaint Chief Complaint: Abd Pain - History obtained from History obtained from: Patient, EMS - History of Present Illness Timing - onset: Enter time (23:00), Other (12/01/21 (approximately 3-4 hours [employer])) Timing - details: Abrupt onset Pain level now: 8 Quality: Pain Location: RLQ, Other (right inguinal) Radiation: Other (does not radiate) Improved by: Laying still Worsened by: Moving, Palpation Associated symptoms: No: Fever, Nausea, Vomiting, Diarrhea, Constipation Similar symptoms before: Diagnosis (right inguinal hernia) Recently seen: Not recently seen - Additional information Additional information: BIBA for right inguinal pain. Patient says he is scheduled to have surgery to repair a right inguinal hernia, scheduled for 12/19 at [place]. He has not had hernia surgery in the past and he says he has never had pain this severe nor persistent before. He says the pain first started in August Given 150 micrograms fentanyl by EMS en route with improvement although by the time of this evaluation, he says the pain is steadily worsening again right inguinal canal with swelling. Review of Systems Constitutional: denies: Fever, Myalgias, Sweats Cardiac: denies: Chest pain / pressure, Palpitations, Pedal edema (1+ pitting bilaterally) Respiratory: denies: Dyspnea, Cough GI: reports: Abdominal Pain ( tender, firm mass approximately 5cm x 4cm diameter. After 1mg IV dilaudid, attempt made at reduction after but unsuccessful due to pain. Given another 1mg dilaudid subsuquent attmpet agin unsuccessful (NAD at rest after 2nd dilaudid dose, but any maniuplation of the mass causes intolerable pain).). denies: Nausea, Vomiting, Constipation, Diarrhea, Hematemesis, Bloody / black stool : denies: Dysuria, Frequency, Hesitancy Skin: reports: Reviewed and negative Musculoskeletal: reports: Reviewed and negative Neurologic: denies: Generalized weakness, Focal weakness, Numbness PD PAST MEDICAL HISTORY - Past Medical History Past Medical History: Yes Cardiovascular: Hypertension Respiratory: None Neuro: None Endocrine/Autoimmune: None GI: GERD : None HEENT: None Psych: None Musculoskeletal: None Derm: None - Past Surgical History Past Surgical History: Yes General: Appendectomy HEENT: Cataracts - Present Medications Home Medications: Ambulatory Orders Medication Instructions Recorded Confirmed Losartan Potassium 50 mg PO DAILY 12/13/15 12/02/21 diltiaZEM CD [Cardizem Cd] 240 mg PO DAILY 12/13/15 12/02/21 hydroCHLOROthiazide 12.5 mg PO DAILY 12/13/15 12/02/21 [Hydrochlorothiazide] - Allergies Allergies/Adverse Reactions: Allergies Allergy/AdvReac Type Severity Reaction Status Date / Time No Known Drug Allergies Allergy Verified 12/02/21 02:43 - Social History Does the pt smoke?: No Smoking Status: Never smoker Does the pt drink ETOH?: No Does the pt have substance abuse?: No - Immunizations Immunizations are current?: Yes - POLST Patient has POLST: No PD ED PE NORMAL - Vitals Vital signs reviewed: Yes - General General: Alert and oriented X 3, No acute distress, Well developed/nourished - HEENT HEENT: No: Moist mucous membranes - Neck Neck: Supple, no meningeal sign - Cardiac Cardiac: RRR, No murmur - Respiratory Respiratory: No respiratory distress, Clear bilaterally - Abdomen Abdomen: Soft, Non distended - Back Back: No CVA TTP PD ED PE EXPANDED - Abdomen Abdomen: Tender to palpation (right inguinal mass that is tedner, firm, irreducible) Results - Vitals Vitals: Vital Signs - 24 hr 12/02/21 12/02/21 12/02/21 02:30 02:54 04:36 Temperature 37.2 C Heart Rate 76 63 60 Respiratory 16 18 18 Rate Blood Pressure 149/97 H 139/85 H 135/62 H O2 Saturation 96 96 96 12/02/21 12/02/21 12/02/21 05:55 08:14 10:51 Temperature 36.9 C 36.7 C Heart Rate 63 80 71 Respiratory 16 16 16 Rate Blood Pressure 133/82 H 128/80 145/90 H O2 Saturation 94 100 98 12/02/21 11:09 Temperature 36.7 C Heart Rate 71 Respiratory 16 Rate Blood Pressure 145/90 H O2 Saturation 98 Oxygen O2 Source Room air - Labs Labs: Laboratory Tests 12/02/21 12/02/21 12/02/21 02:51 02:51 08:35 WBC 8.3 RBC 3.97 L Hgb 12.9 L Hct 36.4 L MCV 91.7 MCH 32.5 H MCHC 35.4 RDW 12.3 Plt Count 277 MPV 10.1 Neut # (Auto) 5.6 Lymph # (Auto) 1.8 [place] # (Auto) 0.7 Eos # (Auto) 0.1 Baso # (Auto) 0.0 Absolute Nucleated RBC 0.00 Nucleated RBC % 0.0 Sodium 140 Potassium 3.2 L Chloride 104 Carbon Dioxide 26 Anion Gap 10.0 BUN 21 H Creatinine 1.0 Estimated GFR (MDRD) 74 L Glucose 121 H Calcium 8.6 Total Bilirubin 0.6 AST 17 ALT 14 Alkaline Phosphatase 51 Total Protein 7.3 Albumin 3.7 Globulin 3.6 Albumin/Globulin Ratio 1.0 Lipase 34 Urine Color YELLOW Urine Clarity CLEAR Urine pH 6.0 Ur Specific [place] 1.020 Urine Protein NEGATIVE Urine Glucose (UA) NEGATIVE Urine Ketones NEGATIVE Urine Occult Blood SMALL H Urine Nitrite NEGATIVE Urine Bilirubin NEGATIVE Urine Urobilinogen 0.2 (NORMAL) Ur Leukocyte Esterase NEGATIVE Urine RBC 0-5 Urine WBC 0-3 Ur Squamous Epith Cells RARE Squamous Urine Bacteria None Seen Ur Microscopic Review INDICATED Urine Culture Comments NOT INDICATED PD MEDICAL DECISION MAKING - ED course Complexity details: reviewed old records, reviewed results, re-evaluated patient, considered differential, d/w patient ED course: After two unsuccessful attempts to reduce the right inguinal hernia, I contacted numerical control machine operator surgery and Dr. Gomes came in to see patient, plan is to perform herniorraphy this morning. Departure - Departure Disposition: ED Transfer to [facility] Clinical Impression: Incarcerated inguinal hernia, unilateral Condition: Stable
[2021-12-02] MEDS ORDERED: HYDROmorphone 1 MG/ML CARPUJECT IVP STA ×2 (05:46→06:11)
[2021-12-02 08:49] LABS: BILIRUBIN,URINE NEGATIVE (NEGATIVE); GLUCOSE, URINE (UA) NEGATIVE (NEGATIVE); KETONES,URINE (UA) NEGATIVE (NEGATIVE); LEUKOCYTE ESTERASE, URINE NEGATIVE (NEGATIVE); NITRITE,URINE NEGATIVE (NEGATIVE); OCCULT BLOOD,URINE SMALL (NEGATIVE); PROTEIN,URINE NEGATIVE (NEGATIVE); UROBILINOGEN,URINE 0.2 (NORMAL) E.U./dL (NORMAL)
[2021-12-02 08:54] LABS: CLARITY,URINE CLEAR (CLEAR)
[2021-12-02 08:56] LABS: BACTERIA,URINE None Seen /HPF (None Seen); RBC,URINE 0-5 /HPF (0-5); SQUAMOUS EPITHELIAL CELL,UR RARE Squamous (<= Few); WBC,URINE 0-3 /HPF (0-3)
[2021-12-02] MEDS ORDERED: GABAPENTIN 400 MG CAPSULE PO STA (09:45)
[2021-12-02] MEDS ORDERED: ACETAMINOPHEN 1,000 MG/100 ML 1,000 MG/100 ML BAG IV ONE (09:45)
[2021-12-02] MEDS ORDERED: TAMSULOSIN 0.4 MG CAPSULE PO STA (09:45)
[2021-12-02] MEDS ORDERED: CELECOXIB 100 MG CAPSULE PO STA (09:45)
--- NOTE | 2021-12-02 11:02 | SURGERY HX AND PHYSICAL(T) ---
Surgical History & Physical - Chief Complaint/HPI Chief Complaint: right groin pain History of Present Illness: This is a very pleasant 71-year-old gentleman who first noticed a bulge in his right groin in August. He has had some intermittent pain at this location and has seen a surgeon. He has an elective inguinal hernia repair scheduled for mid December. His hernia has always been reducible. However, yesterday evening at approximately 8 PM, the patient noticed that he had a painful, nonreducible lump in his right groin. He reports he had been on a ladder doing work on the house to prepare for painting most of the day yesterday. His pain increased over the subsequent 2 hours prompting him to present to the emergency department. His pain is constant and sharp in nature. It is made better with pain medication. It is made worse with palpation and activity. Two attempts by the emergency room physician to reduce the hernia have been unsuccessful. For an incarcerated, right inguinal hernia I have been consulted. At the time of my interview, the patient states that his pain is well controlled. He denies any history of previous hernia repair. He denies any nausea or vomiting. He denies any recent constipation, diarrhea, or blood in his stool. His only previous abdominal surgery was an appendectomy as a child. He is also had cataracts excised. He denies any fevers or chills. He has been feeling otherwise well recently. He describes a very active lifestyle. - PMH/PSH/Social Hx Does the pt have a hx of MRSA?: No Neurological History: None Eyes, Ears, Nose, Throat: None Cardiovascular: Hypertension Respiratory: None Skin: None Endocrine/Autoimmune: None Gastrointestinal: GERD Urinary: None Musculoskeletal: None Blood Disorders: None Psychiatric: None General: Appendectomy Eyes Ears Nose Throat (EENT): Cataracts Smoking Status: Never smoker Does the pt drink ETOH?: No Does the pt have substance abuse?: No - Family Hx Family Hx: Unremarkable - Home Meds and Allergies Home Medications: Losartan Potassium 50 mg PO DAILY 12/13/15 diltiaZEM CD [Cardizem Cd] 240 mg PO DAILY 12/13/15 hydroCHLOROthiazide [Hydrochlorothiazide] 12.5 mg PO DAILY 12/13/15 Allergies/Adverse Reactions: Allergies Allergy/AdvReac Type Severity Reaction Status Date / Time No Known Drug Allergies Allergy Verified 12/02/21 02:43 - Review of Systems Constitutional: Other (A complete 10 point review of symptoms is otherwise negative except for that noted in HPI and PMH.) - Vital Signs Heart Rate: 71 Blood Pressure: 145/90 Temperature: 36.7 C Respiratory Rate: 16 O2 Saturation: 98 Weight (kg): 68.946 kg Height: 1.75 m - Physical Exam General Appearance: positive: No acute distress, Alert Eyes Bilatera: positive: Normal inspection, PERRL ENT: positive: ENT inspection nml Neck: positive: Nml inspection Respiratory: positive: Chest non-tender, No respiratory distress Cardiovascular: positive: Regular rate & rhythm Peripheral Pulses: positive: 2+ Abdomen: positive: No distention, Tenderness (Over right groin hernia, otherwise nontender), Guarding (Voluntary), Mass (Right groin hernia, nonreducible). negative: Rebound Back: positive: Nml inspection Extremities: positive: Non-tender Neurologic/Psychiatric: positive: Oriented x3 - Patient Review Patient Review: Problems were reviewed with the patient during this visit. Medications were reviewed with the patient during this visit. Allergies were reviewed this patient during this visit. Pertinent Tests Reviewed: All pertitent test for this patient were reviewed. - Assessment & Plan Assessment and Plan: This is a 71-year-old gentleman with: 1. Incarcerated right inguinal hernia, concern for strangulation The patient's hernia is not reducible by the ER physician. I gently tried to reduce the hernia in the emergency department and was also unable to do so. I gave the patient options including a trial of muscle relaxer and attempted reduction of the hernia to keep his outpatient, elective surgery versus proceeding with hernia repair today. I explained that if hernia reduction is not successful or if his hernia recurs and is not easily reducible, I would recommend hernia repair urgently. Given these options, the patient elects to proceed with urgent repair at this time without another attempt at reduction. I feel this is reasonable as he has had two attempts to reduce the hernia so far which have been unsuccessful. His hernia is also quite painful raising the concern for strangulation though his vital signs and labs are within normal limits. -We discussed the risks, benefits, and alternatives of open inguinal hernia repair with or without mesh and the possibilities of a diagnostic laparoscopy, laparotomy, and bowel resection. I explained that if the bowel is at all questionable a mesh repair is contraindicated due to increased risk for infection of the mesh. I also explained the scenarios where laparoscopy, laparotomy, and bowel resection may be needed. The patient voiced understanding, his questions were answered, and he wished to proceed with surgery. A consent was signed by the patient. -The patient's last p.o. intake was yesterday evening at approximately 11:30 PM -ERAS medications and preoperative antibiotics have been ordered -I anticipate the patient will likely discharge later today unless a bowel resection is needed in which case he would need to be admitted. The patient is agreeable to this plan of care. 2. hypertension -The patient's home medications will be continued
--- NOTE | 2021-12-02 11:08 | ANESTHESIA ---
Pre-Anesthesia VS, & Labs - Diagnosis right incarcerated inguinal hernia - Procedure right inguinal hernia repair Vital Signs: Temp Pulse Resp BP Pulse Ox O2 Flow Rate 36.7 C 71 16 145/90 H 98 12/02/21 11:04 12/02/21 11:04 12/02/21 11:04 12/02/21 11:04 12/02/21 11:04 Height: 5 ft 9 in Weight (kg): 68.946 kg Body Mass Index: 22.4 BMI Classification: Normal - NPO >8 hours - Lab Results Current Lab Results: Laboratory Tests 12/02/21 02:51: Sodium 140, Potassium 3.2 L, Chloride 104, Carbon Dioxide 26, Anion Gap 10.0, BUN 21 H, Creatinine 1.0, Estimated GFR (MDRD) 74 L, Glucose 121 H, Calcium 8.6, Total Bilirubin 0.6, AST 17, ALT 14, Alkaline Phosphatase 51, Total Protein 7.3, Albumin 3.7, Globulin 3.6, Albumin/Globulin Ratio 1.0, Lipase 34 12/02/21 02:51: WBC 8.3, RBC 3.97 L, Hgb 12.9 L, Hct 36.4 L, MCV 91.7, MCH 32.5 H, MCHC 35.4, RDW 12.3, Plt Count 277, MPV 10.1, Neut # (Auto) 5.6, Lymph # ( Auto) 1.8, [place] # (Auto) 0.7, Eos # (Auto) 0.1, Baso # (Auto) 0.0, Absolute Nucleated RBC 0.00, Nucleated RBC % 0.0 Lab results reviewed: Yes Fish Bones: 12/02/21 02:51 12/02/21 02:51 Home Medications and Allergies Losartan Potassium 50 mg PO DAILY 12/13/15 diltiaZEM CD [Cardizem Cd] 240 mg PO DAILY 12/13/15 hydroCHLOROthiazide [Hydrochlorothiazide] 12.5 mg PO DAILY 12/13/15 omeprazole qd Allergies/Adverse Reactions: Allergies Allergy/AdvReac Type Severity Reaction Status Date / Time No Known Drug Allergies Allergy Verified 12/02/21 02:43 Anes History & Medical History - Anesthetic History Anesthesia Complications: reports: No previous complications - Medical History Cardiovascular: reports: Hypertension Pulmonary: reports: None Gastrointestinal: reports: GERD (well controlled on medication) Urinary: reports: None Neuro: reports: None Musculoskeletal: reports: None Endocrine/Autoimmune: reports: None Blood Disorders: reports: None Skin: reports: None Smoking Status: Current every day smoker (vapes daily) Psychosocial: reports: No issues indicated - Surgical History General: reports: Appendectomy Eyes Ears Nose Throat (EENT): reports: Cataracts Exam General: Alert, Oriented x3, Cooperative, No acute distress Dental: Poor dentition Mouth Openin Fingerbreadth Neck Mobility: Normal Mallampati classification: II Thyromental Distance: less than 4 cm Mental/Cognitive Status: Alert/Oriented X3, Normal for patient Plan Anesthesia Type: General Consent for Procedure(s) Verified and Reviewed: Yes Code Status: Attempt Resuscitation ASA classification: 2-Mild systemic disease Is this case an emergency?: Yes
[2021-12-02] MEDS ORDERED: NALOXONE 0.4 MG/ML VIAL IVP PRN (11:10)
[2021-12-02] MEDS ORDERED: ATROPINE ABBOJECT 1 MG/10 ML SYRINGE IVP PRN (11:10)
[2021-12-02] MEDS ORDERED: ONDANSETRON 4 MG/2 ML VIAL IVP PRN ×2 (11:10→14:28)
[2021-12-02] MEDS ORDERED: HYDROmorphone 0.5 MG/0.5 ML SYRINGE IVP PRN (11:10)
[2021-12-02] MEDS ORDERED: fentaNYL 100 MCG/2 ML VIAL IVP PRN (11:10)
[2021-12-02] MEDS ORDERED: MORPHINE 2 MG/ML CARPUJECT IVP PRN (11:10)
[2021-12-02] MEDS ORDERED: ROCURONIUM 50 MG/5 ML VIAL ONE ×2 (11:13→13:24)
[2021-12-02] MEDS ORDERED: PROPOFOL 200 MG/20 ML VIAL IVP ONE (11:13)
[2021-12-02] MEDS ORDERED: LIDOCAINE-MPF 2% 5 ML VIAL ONE (11:13)
[2021-12-02] MEDS ORDERED: fentaNYL 100 MCG/2 ML VIAL ONE (11:13)
[2021-12-02] MEDS ORDERED: MIDAZOLAM 2 MG/2 ML VIAL ONE (11:13)
[2021-12-02] MEDS ORDERED: CEFAZOLIN 2G/50ML 0.9% NS 2 GM/50 ML BAG IV ONE (11:46)
[2021-12-02] MEDS ORDERED: BUPIVACAINE 0.25% PF 10 ML VIAL ONE (11:46)
[2021-12-02] MEDS ORDERED: LIDOCAINE MPF 2%-EPI 1:200000 20 ML VIAL ONE (11:46)
[2021-12-02] MEDS ORDERED: metroNIDAZOLE 500 MG/100 ML 500 MG/100 ML BAG ONE (11:53)
[2021-12-02] MEDS ORDERED: LACTATED RINGERS 1,000 ML IV SCH (12:00)
[2021-12-02] MEDS ORDERED: ePHEDrine 50 MG/ML VIAL IVP ONE (12:05)
[2021-12-02] MEDS ORDERED: ONDANSETRON 4 MG/2 ML VIAL ONE (13:00)
[2021-12-02] MEDS ORDERED: DEXAMETHASONE 4 MG/ML VIAL ONE (13:00)
[2021-12-02] MEDS ORDERED: BUPIVACAINE 0.25% PF 30 ML VIAL SUBQ ONE (13:21)
[2021-12-02] MEDS ORDERED: LIDOCAINE MPF 2%-EPI 1:200000 20 ML VIAL SUBQ ONE (13:21)
[2021-12-02] MEDS ORDERED: LACTATED RINGERS 300 ML IV ONE (14:15)
[2021-12-02] MEDS ORDERED: SUGAMMADEX 200 MG/2 ML VIAL IVP ONE (14:15)
[2021-12-02] MEDS ORDERED: oxyCODONE 5 MG TABLET PO PRN (14:28)
[2021-12-02] MEDS ORDERED: ACETAMINOPHEN 325 MG TABLET PO PRN (14:28)
--- NOTE | 2021-12-02 14:39 | OPERATIVE REPORT ---
Operative Report - General Procedure Date: 12/02/21 Planned Procedure: open inguinal hernia repair, possible mesh, possible bowel resection Pre-Op Diagnosis: incarcerated right inguinal hernia Procedure Performed: open inguinal hernia repair with mesh, diagnostic laparoscopy Post Op Diagnosis: incarcerated right indirect inguinal hernia - Procedure Note Primary Surgeon: Dr. Torri Matthews Anesthesia Technique: General ET tube, Local Pathology: cord lipoma Estimated Blood Loss (mL): 20 Indications: The patient presented with a 10-hour history of right groin pain. He had a palpable, nonreducible hernia in the right groin. The patient had a scheduled elective surgery for next month. However, since the patient's hernia was not reducible and due to the risk of strangulation, I elected to proceed with hernia repair today. I discussed the risks, benefits, and alternatives of surgery with the patient preoperatively. These risks include but are not limited to bleeding, infection, damage to surrounding structures, chronic pain, recurrence of the hernia, and infection of the mesh requiring removal. The patient voiced understanding, his questions were answered, and he wished to proceed. A consent was signed by the patient prior to surgery. Findings: 1. Hernia reduced with the induction of anesthesia 2. Indirect inguinal hernia 3. Viable bowel 4. PHSE Prolene hernia system used Complications: none - Other Other Information/Narrative: The patient was brought to the operative suite and placed in the supine position. General endotracheal anesthesia was induced. Preop antibiotics were given and ERAS protocol was followed. Patient was prepped and draped in the usual sterile fashion. A preop surgical timeout was performed. Next, local was used to perform an ilioinguinal nerve block. The incision was planned overlying the area of the hernia following the skin crease. An incision was made with a 15 blade scalpel and carried down through the skin and subc utaneous tissues to the level of the external abdominal oblique. Excellent hemostasis was maintained. Local was injected just deep to the external abdominal oblique and the external abdominal oblique muscle was opened using a 15 blade scalpel following the muscle fibers. The incision was enlarged using Metzenbaum scissors through the external inguinal ring and slightly laterally. Next the cord structures were isolated from the surrounding tissues and a [place] drain was passed around them. The hernia sac was identified and isolated from the surrounding tissues taking great care to avoid any cord structures. This was difficult due to significant scarring and edema due to the recent incarceration. The patient was noted to have an indirect inguinal hernia. Once the sac was completely isolated from the surrounding tissues, I elected to make a small hole in the hernia sac and introduce a 5 mm laparoscopic port. Through this port insufflation to 15 mmHg was undertaken. A 5 mm 30 degree scope was inserted through the port. A second and third 5 mm ports were placed in the left lower quadrant under direct laparoscopic guidance. Attention was turned to the bowel in the right lower gwendolyn drant. There was a small piece of bowel that appeared to have been within the hernia as it was hyperemic. It appeared viable and no other bowel was questionable in any way. Adhesions between this piece of bowel in the hernia sac were gently taken down using blunt and sharp dissection with laparoscopic scissors taking great care not to incise the peritoneum. A small amount of oozing was encountered during this process and was coming trolled using laparoscopic clips. Next, the abdomen was deflated. A high ligation of the hernia sac was then performed through the open incision. This was done with a 2-0 Vicryl in a stick tie fashion. There was also noted to be a large cord lipoma which was similarly resected using a stick tie and 2-0 Prolene. The cord lipoma was sent to pathology. Next, a PHSE Prolene hernia system was brought onto the field and placed in the preperitoneal space and the external component was opened. It was tacked medially and inferiorly to the pubic tubercle using a 2-0 PDS suture. It was also tacked to the shelving edge inferiorly and laterally and to the shelving edge superiorly to allow it to lie flat. A slit was made to accommodate the cord structures and the external inguinal ring was re-created. Care was taken to ensure that there was adequate space to accommodate the cord structures and swelling postoperatively. The corners of the mesh were reapproximated to re- create this ring using 2-0 PDS. Additional local was injected into the tissues in the areas where the sutures were placed. The abdomen was then reinflated and attention was turned to the right groin. The hernia had been completely reduced and the mesh sat in the preperitoneal space. The abdomen was deflated, and the laparoscopic ports were removed. Next, the external abdominal oblique muscle was reapproximated with 2-0 Vicryl in a running fashion. Then, Ameena's fascia was reapproximated with 3-0 Vicryl in an interrupted fashion. The subcutaneous tissues were irrigated with warm normal saline. The deep dermal tissues were reapproximated with 3-0 Vicryl in an interrupted fashion. Finally, 4-0 Monocryl was used to reapproximate the skin edges in a running subcuticular fashion. A sterile dressing of skin glue was placed. 4-0 Monocryl was also used to reapproximate the skin edges at the 3 5 mm laparoscopic port sites. Skin glue was placed at the sites as well. The dago ent tolerated the procedure well. Both testicles were noted to be within the scrotum at the end of the case. There were no complications.
--- NOTE | 2021-12-02 14:49 | ANESTHESIA POST OP EVALUATION ---
Anesthesia Post Eval - Post Anesthesia Eval Vitals: Last Vital Signs Temp 0 C L 12/02/21 14:45 Pulse 90 12/02/21 14:45 Resp 17 12/02/21 14:45 BP 123/79 12/02/21 14:45 Pulse Ox 94 12/02/21 14:45 O2 Flow Rate CV Function Including HR & BP: Stable Pain Control: Satisfactory Nausea & Vomiting: Negative Mental Status: Patient Participates Respiratory Status: Airway Patent Hydration Status: Satisfactory Anesthesia Complications: None
[2021-12-02 16:29] VITALS: BP 136/89
== END 2021-12-02 16:41 | disposition home or self-care (01) ==
LOC: EDUNIT# → ED 02:22 → SDS 09:00 → MS2 14:50 → SDS 16:41
PROVIDERS: ATTEND Surgery
PROC: 0VBF0ZZ Excision of Right Spermatic Cord, Open Approach (ICD-10-PCS; 2021-12-02)
PROC: 0YU50JZ Supplement Right Inguinal Region with Synthetic Substitute, Open Approach (ICD-10-PCS; principal; 2021-12-02 11:30)
DX: K40.30 Unilateral inguinal hernia, with obstruction, without gangrene, not specified as recurrent (principal); D17.6 Benign lipomatous neoplasm of spermatic cord; I10 Essential (primary) hypertension
CPT/HCPCS: 36415; 49507; 55520; 80053; 81001; 83690; 85025; 96374; 96376; 99284; 99285; A9270; C1713; J0131; J0690; J1170; J7120; 81003; 87086

== ENCOUNTER 2023-03-19 13:09 | Outpatient (CLI) | payer MEDICARE, OTHER ==
--- NOTE | 2023-03-19 14:04 | XRAY Report ---
PROCEDURE: Hand 1-2V LT INDICATIONS: PAIN OF LEFT HAND TECHNIQUE: 3 views of the hand(s) acquired. COMPARISON: None. FINDINGS: Bones: No fractures or dislocations. No suspicious bony lesions. Mild first CMC arthritic change. Rounded ossicle is noted at the base of the first metacarpal, overlying the joint space. Soft tissues: No suspicious soft tissue calcifications or masses. IMPRESSION: No acute bony abnormality. Reviewed by: Aliyah Lucas MD on 03/19/2023 2:[address] [facility] Approved by: Aliyah Lucas MD on 03/19/2023 2:[address] [facility] Station ID: [id number]
== END 2023-03-19 13:10 | disposition home or self-care (01) ==
LOC: DI.S 13:09
PROVIDERS: ATTEND Nurse Practitioner Family
DX: M79.642 Pain in left hand (principal)

== ENCOUNTER 2023-03-25 14:53 | Outpatient (CLI) | payer MEDICARE, OTHER ==
--- NOTE | 2023-03-26 09:02 | CT Report ---
PROCEDURE: Lung Cancer Screen INDICATIONS: EX SMOKER TECHNIQUE: A CT scan of the chest was performed. Intravenous contrast media was not administered. Images were re corded and evaluated at appropriate window settings. Reformats: axial MIP of the chest, coronal and s agittal. For radiation dose reduction, the following was used: automated exposure control, adjustment of mA and/or kV according to patient size. COMPARISON: 12/18/2021 FINDINGS: Image quality: Diagnostic, allowing for low-dose technique Lungs and pleura:Scattered areas of scarring, atelectasis are unchanged. Upper lobe groundglass opaci ties are also stable, likely sequela of chronic infection. Other small solid nodules are stable. There is a new nodule in the lateral region of the left upper lobe measuring 6 to 7 mm (4/60). There may be some surrounding groundglass opacity. Mediastinum, heart, and esophagus: Dense coronary calcifications are present. There are annular calci fications and possible aortic valve calcifications as well. Mild debris in the esophagus. No patholog ic lymph nodes by size criteria. Vascular calcifications. Coronary calcium scoring application was applied due to the dense coronary calcifications. Total scor e is about 2300, indicating severe calcifications. There is involvement of the left main, LAD, left c ircumflex, and RCA. Chest wall and thyroid: A small right thyroid nodule with calcifications again seen. Chest wall is ot herwise unremarkable. Upper abdomen: Partially seen on this low-dose noncontrast study, no gross abnormality. Suspected duo denal diverticulum. Bones: Degenerative changes, no acute or suspicious osseous abnormality. IMPRESSION: New lateral left upper lobe nodule (4/60) measuring 6 7 mm. Lung RADS 4A. Recommend 3 month follow-up low-dose chest CT. Other areas of groundglass nodules and scarring are stable. Dense coronary calcifications. Reviewed by: Fly Salcido MD on 03/26/2023 9:01 AM [facility] Approved by: Fly Salcido MD on 03/26/2023 9:01 AM PST Station ID: [id number]
== END 2023-03-25 14:54 | disposition home or self-care (01) ==
LOC: DI 14:53
PROVIDERS: ATTEND Nurse Practitioner Family
DX: Z12.2 Encounter for screening for malignant neoplasm of respiratory organs (principal); Z87.891 Personal history of nicotine dependence; J98.11 Atelectasis; R91.8 Other nonspecific abnormal finding of lung field; I25.10 Atherosclerotic heart disease of native coronary artery without angina pectoris

== ENCOUNTER 2023-11-26 21:07 | Outpatient (CLI) | payer MEDICARE, OTHER | END 2023-11-26 23:59 | disposition critical access hospital (66) | LOC: EMS 21:07 | DX: R10.817 Generalized abdominal tenderness (principal); R19.04 Left lower quadrant abdominal swelling, mass and lump; R10.32 Left lower quadrant pain | CPT/HCPCS: A0425; A0429 ==

== ENCOUNTER 2023-11-26 21:40 | Emergency (ER) | payer MEDICARE, OTHER ==
--- NOTE | 2023-11-26 21:44 | ED Physician Documentation ---
PD HPI ABD PAIN - Stated complaint Stated Complaint: ABD PAIN - History obtained from History obtained from: Patient, EMS - Additional information Additional information: 73-year-old gentleman with history of hypertension and hyperlipidemia presents by ambulance. He has had some mild abdominal discomfort for the last few weeks, but it became more acute tonight in the left groin. He had an ultrasound ordered by his primary care physician which has not been completed yet. PD PAST MEDICAL HISTORY - Past Medical History Cardiovascular: Hypertension Respiratory: None Neuro: None Endocrine/Autoimmune: None GI: GERD : None HEENT: None Psych: None Musculoskeletal: None Derm: None - Past Surgical History Past Surgical History: Yes General: Appendectomy HEENT: Cataracts - Present Medications Home Medications: Ambulatory Orders Medication Instructions Recorded Confirmed Losartan Potassium 50 mg PO DAILY 12/13/15 11/26/23 hydroCHLOROthiazide 12.5 mg PO HS 12/13/15 11/26/23 [Hydrochlorothiazide] Rosuvastatin Calcium [Crestor] 20 mg PO DAILY 11/26/23 11/26/23 dilTIAZem HCL [Diltiazem 24Hr ER] 240 mg PO DAILY 11/26/23 11/26/23 - Allergies Allergies/Adverse Reactions: Allergies Allergy/AdvReac Type Severity Reaction Status Date / Time No Known Drug Allergies Allergy Verified 11/26/23 21:49 - Social History Does the pt smoke?: No Smoking Status: Never smoker Does the pt drink ETOH?: No Does the pt have substance abuse?: No - Immunizations Immunizations are current?: Yes - POLST Patient has POLST: No PD ED PE NORMAL - Vitals Vital signs reviewed: Yes - General General: Alert and oriented X 3, No acute distress - Abdomen Abdomen: Normal bowel sounds, Soft, Non tender, Other (Tender incarcerated left inguinal hernia which I was unable to reduce on initial evaluation due to discomfort. Will try again after medication.) Results - Vitals Vitals: Vital Signs - 24 hr 11/26/23 11/26/23 21:42 21:45 Temperature 36.8 C Heart Rate 80 81 Respiratory 16 Rate Blood Pressure 151/96 H 151/96 H O2 Saturation 96 99 Oxygen O2 Source Room air - Labs Labs: Laboratory Tests 11/26/23 11/26/23 21:47 21:47 WBC 12.4 H RBC 4.52 L Hgb 14.1 Hct 41.8 L MCV 92.5 MCH 31.2 H MCHC 33.7 RDW 12.5 Plt Count 300 MPV 10.1 Neut # (Auto) 9.3 H Lymph # (Auto) 2.1 [place] # (Auto) 0.9 Eos # (Auto) 0.1 Baso # (Auto) 0.0 Absolute Nucleated RBC 0.00 Nucleated RBC % 0.0 Sodium 136 Potassium 3.3 L Chloride 97 L Carbon Dioxide 28 Anion Gap 11.0 BUN 21 H Creatinine 1.2 Estimated GFR (MDRD) 60 L Glucose 96 Calcium 10.2 Total Bilirubin 1.0 AST 16 ALT 16 Alkaline Phosphatase 48 Total Protein 7.8 Albumin 4.7 Globulin 3.1 Albumin/Globulin Ratio 1.5 Lipase 18 PD Medical Decision Making - ED course ED course: 73-year-old gentleman presents with pain from an incarcerated left inguinal hernia. I was not able to reduce it on initial evaluation. That said after the administration of 1 mg of Dilaudid pain was much better and another attempt at reduction was undertaken and I believe it was successful. That said am not quite confident and I will send him for CT imaging. He stated to me that he had an appointment for CT imaging of the chest on Friday anyway and would like to get that done tonight. History of smoking and history of pulmonary nodule. On my "wet read of his CTs, it looks like the left inguinal hernia is reduced but he has a persistent SBO pattern. I presume this will resolve quickly now that the hernia is reduced but we are waiting radiology review on shift change to Dr. Lutz at 11 PM. Departure - Departure Disposition: Home, Self Care Clinical Impression: Incarcerated left inguinal hernia Abdominal pain Qualifiers: Abdominal location: left lower quadrant Qualified Code(s): R10.32 - Left lower quadrant pain Condition: Good Record reviewed to determine appropriate education?: Yes Instructions: ED Hernia Inguinal Follow-Up: Surgical Care [Provider Group] Comments: You were seen tonight for an incarcerated left inguinal hernia that we were able to reduce. We did a CT afterward that shows the hernia is reduced, there is some swelling of the bowels, but I thin that will resolve quickly now that the hernia is reduced. The radiologist wondered if your stomach wall was thickened and recommended upper endoscopy (not urgent, but soon). The chest CT was stable per the radiologist, continue followup for the nodules and smoking history per your primary care doctor/provider. Follow-up with the surgeon, call tomorrow for an appointment. You may need a formal referral from your primary care physician. Return for new or worsening symptoms.
[2023-11-26] MEDS: HYDROmorphone 1 MG/ML CARPUJECT IVP STA (21:53)
[2023-11-26 22:01] LABS: BASOPHILS % (AUTO) 0.2 %; EOSINOPHILS # (AUTO) 0.1 10^3/uL (0.0-0.7); EOSINOPHILS % (AUTO) 0.4 %; HCT - HEMATOCRIT 41.8 % (42.0-52.0); HGB - HEMOGLOBIN 14.1 g/dL (14.0-18.0); LYMPHOCYTES # (AUTO) 2.1 10^3/uL (1.5-3.5); LYMPHOCYTES % (AUTO) 17.1 %; MEAN CORPUSCULAR HEMOGLOBIN 31.2 pg (27.0-31.0); MEAN CORPUSCULAR HGB CONC 33.7 g/dL (32.0-36.0); MEAN CORPUSCULAR VOLUME 92.5 fL (80.0-94.0); MEAN PLATELET VOLUME 10.1 fL (7.4-11.4); MONOCYTES # (AUTO) 0.9 10^3/uL (0.0-1.0); MONOCYTES % (AUTO) 7.5 %; NEUTROPHILS # (AUTO) 9.3 10^3/uL (1.5-6.6); NEUTROPHILS % (AUTO) 74.5 %; PLT - PLATELET COUNT 300 10^3/uL (130-450); RED BLOOD COUNT 4.52 10^6/uL (4.70-6.10); RED CELL DISTRIBUTION WIDTH 12.5 % (12.0-15.0); WHITE BLOOD COUNT 12.4 x10^3/uL (4.8-10.8)
[2023-11-26] MEDS ORDERED: iohexoL-300 100 ML VIAL ONE (22:08)
[2023-11-26 22:15] LABS: ALBUMIN 4.7 g/dL (3.2-5.5); ALBUMIN/GLOBULIN RATIO 1.5 (1.0-2.2); CALCIUM 10.2 mg/dL (8.5-10.3); CREATININE 1.2 mg/dL (0.6-1.3); POTASSIUM 3.3 mmol/L (3.5-4.5); TOTAL PROTEIN 7.8 g/dL (6.4-8.9)
[2023-11-26] MEDS: iohexoL-300 100 ML VIAL IVP ONE (22:43)
--- NOTE | 2023-11-26 23:08 | CT Report ---
PROCEDURE: Chest WO INDICATIONS: nodule TECHNIQUE: A CT scan of the chest was performed. Intravenous contrast media was not administered. Images were re corded and evaluated at appropriate window settings. Reformats: axial MIP of the chest, coronal and s agittal. For radiation dose reduction, the following was used: automated exposure control, adjustment of mA and/or kV according to patient size. COMPARISON: 03/25/2023 FINDINGS: Image quality: Diagnostic Lungs and pleura:Left lateral nodule of concern on prior CT has resolved. Diffuse groundglass nodules are again seen in the upper lobes and superior lower lobes, the largest on the left up to 1.9 cm. No pleural effusions. Mediastinum, heart, and esophagus: Small hiatal hernia. Coronary calcifications. Annular and valvular calcifications. No pathologic lymph nodes by size criteria. Chest wall and thyroid: Thyroid nodules again seen, up to 1.9 cm in the right lobe with calcification s. Chest wall is unremarkable Upper abdomen: Separately dictated Bones: There are degenerative changes. IMPRESSION: Previously identified left lateral upper lobe nodule has resolved. Numerous groundglass nodules again seen in the upper lungs, and superior lower lobes, overall similar to prior Recommend return to low dose lung cancer screening in 6 months Reviewed by: Fly Salcido MD on 11/26/2023 11:07 PM PDT Approved by: Fly Salcido MD on 11/26/2023 11:07 PM PDT Station ID: [id number]
--- NOTE | 2023-11-26 23:14 | CT Report ---
PROCEDURE: Abdomen/Pelvis W INDICATIONS: iv only, pain, i think had lih reduced CONTRAST: OMNI 300, 100mls TECHNIQUE: After the administration of intravenous contrast, a CT scan of the abdomen and pelvis was performed. Images were recorded and evaluated at appropriate window settings. Reformats: coronal and sagittal. F or radiation dose reduction, the following was used: automated exposure control, adjustment of mA and /or kV according to patient size. COMPARISON: None. FINDINGS: Image quality: Diagnostic Lower chest: Separately dictated Small hiatal hernia. Liver: Unremarkable Gallbladder and biliary system: Unremarkable, nondilated. Pancreas: There are calcifications at the head. No ductal dilation. Calcifications may be from prior inflammation. Spleen: Nonenlarged. Subcentimeter lesions are too small characterize, usually cysts or hemangiomas Adrenals: Left adrenal thickening without discrete nodule Kidneys: Scattered scarring bilaterally. No solid renal mass. Subcentimeter lesions are too small linnea racterize, usually cysts. Vessels and lymph nodes: The main portal vein is patent. No abdominal aortic aneurysm. No pathologic lymph nodes by size criteria. Bowel and peritoneum: There is moderate diffuse gastric wall thickening, not well assessed however du e to underdistention. Colonic diverticula are seen. Moderate rectal stool ball. No pathologic ascites. Right lower quadrant clips are present Mild diffuse distention of the small bowel, with relatively underdistended distal ileum. Body wall: Small fat-containing left periumbilical hernia. Pelvis: Bladder is unremarkable. Prostate is not well assessed on this study. Bones: There are degenerative changes. IMPRESSION: Mild diffuse small bowel distention, with underdistended distal ileum, likely early obstruction versu s ileus. Superimposed enteritis is possible. Colonic diverticula without CT evidence of acute inflammation. No abscess or pathologic ascites. Small hiatal hernia. Moderate diffuse inflammatory or malignant gastric wall thickening, not well ass essed due to underdistention. Endoscopy could further evaluate if clinically indicated Other findings above. Reviewed by: Fly Salcido MD on 11/26/2023 11:12 PM PDT Approved by: Fly Salcido MD on 11/26/2023 11:12 PM PDT Station ID: [id number]
--- NOTE | 2023-11-27 00:03 | ED Physician Documentation ---
ED Addendum - Addendum Addendum: 11/27/23 00:50 I received signout/turnover of care on this patient from Dr. Schmitz; please see his note for complete H&P. In brief, this patient presented for left-sided abdominal pain. On physical exam, Dr. Schmitz detected and was able to reduce a left inguinal hernia. This coincided with sudden complete resolution of the patient's discomfort. At the time of turnover of care, CT results of his chest, A/P are pending. The CT A/P is intrepreted by radiologist as "likely early obstruction versus ileus. Superimposed enteritis is possible." Incidental findings of diverticulosis (without evidence of diverticulitis), small hiatal hernia, and "moderate diffuse inflammatory or malignant gastric wall thickening, not well assessed due to underdistention. Endoscopy could further evaluate if clinically indicated" are also noted. CT chest is interpreted as "previously identified left lateral upper lobe nodule has resolved. Numerous groundglass nodules again seen in the upper lungs, and superior lower lobes, overall similar to prior." I discussed these results with the patient. He indicates he is aware of the hiatal hernia. I emphasized the finding regarding his gastric wall, as the differential from the radiologist's standpoint would include potential malignancy. Instructed him to discuss these results with his primary care provider. The findings on the CT A/P do not dissuade from suspicion that his symptoms were due to a left inguinal hernia that has been reduced. He is in NAD on my reevaluation, reports that he is asymptomatic, and his abdominal exam is benign. Return precautions are reviewed.
[2023-11-27 00:12] VITALS: BP 128/51; O2SAT 95
== END 2023-11-27 00:18 | disposition home or self-care (01) ==
LOC: EDUNIT# → ED 21:40
DX: K40.30 Unilateral inguinal hernia, with obstruction, without gangrene, not specified as recurrent (principal); R10.32 Left lower quadrant pain; R93.5 Abnormal findings on diagnostic imaging of other abdominal regions, including retroperitoneum; R91.8 Other nonspecific abnormal finding of lung field; K57.30 Diverticulosis of large intestine without perforation or abscess without bleeding; K44.9 Diaphragmatic hernia without obstruction or gangrene
CPT/HCPCS: 36415; 71250; 74177; 80053; 83690; 85025; 96374; 99283; 99284; J1170; Q9967